=== PATIENT | male | born 2000 | race Caucasian/White ===

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

== ENCOUNTER 2019-10-16 20:19 | Emergency (ER) | payer OTHER, MEDICAID, SELFPAY ==
[2019-02-05 12:13] VITALS: BMI 20.7
[2019-10-16 20:22] VITALS: BP 146/82; PULSE 84; RESP 18; TEMP 36.8; O2SAT 98; BMI 20.9
[2019-10-16 21:08] LABS: Add Manual Diff / Slide Review NO; Basophils Absolute Auto 0 /uL (0-100); Basophils Percent Auto 0.5 % (0-2); Eosinophils Absolute Auto 100 /uL (0-450); Eosinophils Percent Auto 2.8 % (2-4); Hematocrit 46.4 % (41-53); Hemoglobin 16.6 g/dL (13.5-17.5); Lymphocytes Absolute Auto 1400 /uL (1100-4500); Lymphocytes Percent Auto 31.7 % (25-40); Mean Corpuscular HGB Conc 35.8 % (30-36); Mean Corpuscular Hemoglobin 29.9 PG (26-34); Mean Corpuscular Volume 83.4 fL (80-100); Monocytes Absolute Auto 900 /uL (0-900); Monocytes Percent Auto 18.9 % (3-14); Neutrophils Absolute Auto 2100 /uL (1500-7000); Neutrophils Percent Auto 46.1 % (50-75); Platelet Count 248 X10^3/uL (150-400); Red Blood Cell Count 5.56 X10^6/uL (4.5-5.9); Red Cell Distribution Width 13.2 % (11.6-14.8); White Blood Cell Count 4.6 X10^3/uL (4.5-11.0)
--- NOTE | 2019-10-16 21:09 | ED.ABDPAIN ---
HPI - Abdominal Pain General Chief Complaint: Abdominal Pain Stated Complaint: Abd Pain, Can't Eat, Fever Time Seen by Provider: 10/16/19 20:43 Source: patient and family Mode of arrival: Ambulatory Limitations: no limitations History of Present Illness HPI narrative: Here for evaluation epigastric abdominal pain. He states that he has had pain for the past 3 days. Has been constant pain. He states that it started when he was eating. Since the onset the pain has been worse with eating or drinking but then improved somewhat but does not completely go away. No change in bowel habits. No current nausea. No urinary symptoms. No prior abdominal issues. Patient not taking any medications. Denies the use of nonsteroidal anti-inflammatories. Has not tried anything for symptoms prior to arrival. Had 1 episode of vomiting yesterday which did not change any of his symptoms. Has had some subjective fevers Related Data Previous Rx's Medication Instructions Recorded sucralfate [Carafate] 1 gram PO QACHS #60 tab 10/16/19 Allergies Allergy/AdvReac Type Severity Reaction Status Date / Time No Known Drug Allergies Allergy Verified 02/18/19 13:48 Review of Systems Constitutional Constitutional: Denies headache(s) ENT Ears, Nose, Mouth, and Throat: Denies headache(s) Cardiovascular Cardiovascular: Denies chest pain and Denies dyspnea Respiratory Respiratory: Denies dyspnea Gastrointestinal Gastrointestinal: Reports abdominal pain, Denies change in stool character, Denies nausea and Reports vomiting (One time yesterday) Genitourinary Genitourinary: Denies dysuria Musculoskeletal Musculoskeletal: Denies myalgias and Denies arthralgias Integumentary/Breasts Skin/Breast: Denies lesions and Denies rash Neurologic Neurologic: Denies behavioral changes and Denies headache(s) Psychiatric Psychiatric: Denies behavioral changes Hematologic/Lymphatic Hematologic/Lymphatic: Denies easy bleeding and Denies easy bruising Patient History Medical History No significant past medical history (Acute) Pilonidal cyst with abscess (Acute) Social History household members: family Smoking Status: Never smoker Smoking Status: Never smoker alcohol intake frequency: 0-2 drinks per day Substance Use Type: does not use Exam Initial Vital Signs Initial Vital Signs: Vital Signs Temperature 98.3 F 10/16/19 20:22 Pulse Rate 84 10/16/19 20:22 Respiratory Rate 18 10/16/19 20:22 Blood Pressure 146/82 H 10/16/19 20:22 Pulse Oximetry 98 10/16/19 20:22 Const General: cooperative and comfortable Limitations: mental status not altered HENMT Head: normal to inspection and normocephalic Resp Effort & Inspection: normal respiratory effort Auscultation: clear to auscultation bilaterally Cardio Rate: regular rate Rhythm: regular rhythm GI Inspection: non-distended Palpation: soft, No firm and No tender Skin Lesions: no lesions Rashes: no rashes Neuro General: alert, awake and oriented x3 Cognition: normal cognition Speech: speech normal Extrem General: normal to inspection and capillary refill normal Psych Appearance: grossly normal and well kempt Course Orders Ordered: ED Orders 10/16/19 20:57 Complete Blood Count AUTO DIFF Stat Comprehensive Metabolic Panel Stat Lipase Stat Vital Signs Vital signs: Vital Signs - 8 hr 10/16/19 20:22 10/16/19 21:48 Temperature 98.3 F Pulse Rate 84 88 Respiratory Rate 18 18 Blood Pressure 146/82 H 122/66 Pulse Oximetry 98 99 MDM - Abdominal Pain Lab Data Attestation: I reviewed the patient's lab results. Result diagrams: 10/16/19 20:57 10/16/19 20:57 Labs: Lab Results 10/16/19 10/16/19 Range/Units 20:57 20:57 WBC 4.6 (4.5-11.0) X10^3/uL RBC 5.56 (4.5-5.9) X10^6/uL Hgb 16.6 (13.5-17.5) g/dL Hct 46.4 (41-53) % MCV 83.4 (80-100) fL MCH 29.9 (26-34) PG MCHC 35.8 (30-36) % RDW 13.2 (11.6-14.8) % Plt Count 248 (150-400) X10^3/uL Neut % (Auto) 46.1 L (50-75) % Lymph % (Auto) 31.7 (25-40) % [place] % (Auto) 18.9 H (3-14) % Eos % (Auto) 2.8 (2-4) % Baso % (Auto) 0.5 (0-2) % Neut # (Auto) 2100 (9350-2417) /uL Lymph # (Auto) 1400 (4481-3035) /uL [place] # (Auto) 900 (0-900) /uL Eos # (Auto) 100 (0-450) /uL Baso # (Auto) 0 (0-100) /uL Sodium 139 (137-145) mmol/L Potassium 3.9 (3.4-5.1) mmol/L Chloride 102 (98-107) mmol/L Carbon Dioxide 29 (22-32) mmol/L BUN 13 (9-20) mg/dL Creatinine 0.82 (0.66-1.25) mg/dL Estimated GFR > 60.0 (>60) mL/min BUN/Creatinine Ratio 15.9 (6-22) Glucose 98 (70-100) mg/dL Calcium 9.4 (8.4-10.2) mg/dL Total Bilirubin 0.8 (0.2-1.3) mg/dL AST 40 (17-59) IU/L ALT 45 (<50) IU/L Alkaline Phosphatase 78 (38-126) U/L Total Protein 8.3 H (6.3-8.2) g/dL Albumin 4.7 (3.5-5.0) g/dL Globulin 3.6 (1.7-4.1) g/dL Albumin/Globulin Ratio 1.3 (1.0-2.8) Lipase 56 (23-300) U/L MDM Narrative Medical decision making narrative: Labs are unremarkable. Low suspicion for acute intra-abdominal surgical issue such as appendicitis or bowel obstruction. His exam is not consistent with pyelonephritis or kidney stones. Labs not consistent with acute cholecystitis or pancreatitis. This pain does seem to be worsening with eating or drinking. Upon further evaluation thumb potential reflux/ulcer related issues the patient states that he has had heartburn for several days prior to the onset of his symptoms. We will start the patient on a H2 anila. Also start him on Carafate. We did discuss return precautions and follow-up instructions. I feel patient could be safely discharged home without a CT scan of his abdomen. Both the patient his mother expressed understanding and agreement. Discharge Plan Departure Patient Disposition: Home Clinical Impression: Abdominal pain Qualifiers: Abdominal location: epigastric Qualified Code(s): R10.13 - Epigastric pain Discharge Date/Time: 10/16/19 21:48 Instructions: DI for Abdominal Pain-Adult Activity Restrictions/Additional Instructions: Your symptoms today are fairly consistent with a stomach ulcer. Recommend that you start taking a H2 anila such as Pepcid. You can purchase this [id number]. The generic version of this medicine is appropriate. Also start taking the Carafate that you were given a prescription for as directed. Return to the emergency department for new or worsening symptoms of like we discussed. Prescriptions: New sucralfate [Carafate] 1 gram tablet 1 gram PO QACHS Qty: 60 RF: 0 Stand Alone Forms: Work Release Note
[2019-10-16 21:16] LABS: Alanine Aminotransferase 45 IU/L (<50); Albumin 4.7 g/dL (3.5-5.0); Albumin Globulin Ratio 1.3 (1.0-2.8); Alkaline Phosphatase 78 U/L (38-126); Aspartate Aminotransferase 40 IU/L (17-59); BUN Creatinine Ratio 15.9 (6-22); Bilirubin Total 0.8 mg/dL (0.2-1.3); Blood Urea Nitrogen 13 mg/dL (9-20); Calcium 9.4 mg/dL (8.4-10.2); Carbon Dioxide 29 mmol/L (22-32); Chloride 102 mmol/L (98-107); Estimated Glomerular Filt Rate > 60.0 mL/min (>60); Globulin 3.6 g/dL (1.7-4.1); Glucose 98 mg/dL (70-100); HEMOLYSIS < 15 (0-50); Lipase 56 U/L (23-300); Potassium 3.9 mmol/L (3.4-5.1); Sodium 139 mmol/L (137-145); Total Protein 8.3 g/dL (6.3-8.2)
[2019-10-16 21:48] VITALS: BP 122/66; PULSE 88; RESP 18; O2SAT 99
== END 2019-10-16 21:48 | disposition home or self-care (01) ==
PROVIDERS: Emergency Provider Emergency Medicine
DX: R10.13 Epigastric pain (principal)
CPT/HCPCS: 36415; 80053; 83690; 85025; 99283; 99284